=== PATIENT | male | born 1940 | race Caucasian/White ===

== ENCOUNTER 2017-03-13 07:03 | Day surgery (SDC) | payer OTHER, MEDICARE ==
[2017-03-12 09:12] LABS: ASPARTATE AMINO TRANSFERASE 26 U/L (15-37); BLOOD UREA NITROGEN 42 mg/dL (7-18)
[~2017-03-13] VITALS: Ht 175.3 cm; Wt 79.1 kg
[~2017-03-13 07:03] MED LIST: ATOR40TA78 PO; CALC0.25 PO; CARV12.543 PO; FERR325T10 PO; INSU100I28 SC; LEVO150T5 PO; LEVO75TA5 PO; LINA5TAB PO; LOSA25TA5 PO; MOME17SP NAS; RANI-276 PO; RIVA15TA PO; SEVE800T8 PO; SODI325T PO; SODI453. PO; TORS5TAB4 PO
[2017-03-13] MEDS ORDERED: SODIUM CHLORIDE 0.9% 1,000 ML IV SCH (07:46)
[2017-03-13] MEDS ORDERED: FENTANYL PF 100 MCG/2ML ONE (08:31)
[2017-03-13] MEDS ORDERED: CEFAZOLIN PMX 1GM/50ML 50 ML ONE (08:32)
[2017-03-13] MEDS ORDERED: CEFAZOLIN 1,000 MG ONE (08:32)
[2017-03-13] MEDS ORDERED: MIDAZOLAM 1 MG/ML, 5ML ONE (08:32)
[2017-03-13] MEDS ORDERED: LIDOCAINE 2%, 20ML ONE (08:32)
[2017-03-13] MEDS ORDERED: SODIUM CHLORIDE FLUSH 10ML SYR IVF SCH (21:00)
== END 2017-03-13 11:49 | disposition home or self-care (01) ==
LOC: CACL 07:03
PROVIDERS: ATTEND Internal Medicine Cardiovascular Disease
DX: Z45.02 Encounter for adjustment and management of automatic implantable cardiac defibrillator (principal); I42.9 Cardiomyopathy, unspecified; E78.5 Hyperlipidemia, unspecified; E11.319 Type 2 diabetes mellitus with unspecified diabetic retinopathy without macular edema; I25.5 Ischemic cardiomyopathy; I10 Essential (primary) hypertension; Z95.810 Presence of automatic (implantable) cardiac defibrillator; Z95.0 Presence of cardiac pacemaker
CPT/HCPCS: 33263; 36415; 71020; 80053; 85025; 85610; 85730; 99156; 99157; C1721; J0690; J2250; J3010; J3490

== ENCOUNTER → 2019-01-18 | Outpatient (CLI) | payer OTHER, MEDICARE ==
[~2019-01-18] MED LIST changes: +FERR-51 PO; -FERR325T10 PO; +LOSA25TA25 PO; -LOSA25TA5 PO; -RANI-276 PO; +RANI-448 PO
== END | disposition home or self-care (01) ==
LOC: CFH 09:02
PROVIDERS: ATTEND Internal Medicine Cardiovascular Disease
DX: I08.8 Other rheumatic multiple valve diseases (principal); I25.5 Ischemic cardiomyopathy
CPT/HCPCS: 93306

== ENCOUNTER → 2020-09-13 | Outpatient (CLI) | payer OTHER, MEDICARE ==
[~2020-09-13] MED LIST changes: -RANI-448 PO; +RANI-460 PO
== END | disposition home or self-care (01) ==
LOC: CFH 08:17
PROVIDERS: ATTEND Internal Medicine Cardiovascular Disease
DX: I08.8 Other rheumatic multiple valve diseases (principal); I25.5 Ischemic cardiomyopathy
CPT/HCPCS: 93306